=== PATIENT | female | born 2000 | race Caucasian/White ===

== ENCOUNTER 2022-04-09 15:18 | Emergency (ER) | payer BC ==
[2022-04-09] MEDS ORDERED: Haloperidol Lactate 5 MG/ML SDV IM ONE (18:36)
== END 2022-04-09 20:52 | disposition home or self-care (01) ==
LOC: JD.ED 15:18
DX: G43.909 Migraine, unspecified, not intractable, without status migrainosus (principal); R41.2 Retrograde amnesia; Z91.048 Other nonmedicinal substance allergy status; Z88.0 Allergy status to penicillin
CPT/HCPCS: 36415; 70450; 80053; 80306; 80307; 81001; 81025; 83735; 85025; 96372; 99284; J1630

== ENCOUNTER 2024-08-09 08:24 | Inpatient (IN) | payer BC ==
[2024-08-09] MEDS ORDERED: Calcium Carbonate 500 MG Tab.Chew PO PRN (08:27)
[2024-08-09] MEDS ORDERED: Nalbuphine 10 MG/1 ML Vial IVPUSH PRN (08:27)
[2024-08-09] MEDS ORDERED: Lidocaine 1% 50 ML MDV INJECT PRN (08:27)
[2024-08-09] MEDS ORDERED: Acetaminophen 325 MG Tab PO PRN ×2 (08:27→20:07)
[2024-08-09] MEDS ORDERED: Ondansetron 4 MG/2 ML SDV IVPUSH PRN (08:27)
[2024-08-09] MEDS ORDERED: Oxytocin/0.9 % Sodium Chloride 30 UNIT/500 ML BAG IV SCH ×3 (08:30→17:00)
[2024-08-09 09:00] LABS: BASOPHILS ABSOLUTE AUTO 0.1 K/mm3 (0.0-0.2); BASOPHILS PERCENT AUTO 0.3 % (0.0-1.0); EOSINOPHILS PERCENT AUTO 0.2 % (0.0-6.0); HEMATOCRIT 35.5 % (37.0-47.0); HEMOGLOBIN 11.6 gm/dl (12.0-16.0); IMMATURE GRAN ABSOLUTE AUTO 0.22 K/mm3 (0.00-0.05); IMMATURE GRAN PERCENT AUTO 1.1 % (0.0-0.4); LYMPHOCYTES ABSOLUTE AUTO 1.2 K/mm3 (1.0-4.8); LYMPHOCYTES PERCENT AUTO 6.4 % (24.0-44.0); MEAN CORPUSCULAR HEMOGLOBIN 27.9 pg (28.0-32.0); MEAN CORPUSCULAR HGB CONC 32.7 g/dl (32.0-36.0); MEAN CORPUSCULAR VOLUME 85.3 fl (83.0-99.0); MEAN PLATELET VOLUME 10.2 fl (9.4-12.3); MONOCYTES ABSOLUTE AUTO 1.8 K/mm3 (0.0-0.8); MONOCYTES PERCENT AUTO 9.1 % (0.0-8.0); NEUTROPHILS ABSOLUTE AUTO 16.2 K/mm3 (1.8-7.7); NEUTROPHILS PERCENT AUTO 82.9 % (41.0-71.0); PLATELET COUNT,PLT 389 K/mm3 (150-400); RED BLOOD CELL COUNT 4.16 M/mm3 (4.10-5.30)
[2024-08-09] MEDS: Lactated Ringers 1,000 ML IV SCH (09:00)
[2024-08-09] MEDS ORDERED: diphenhydrAMINE 50 MG/ML SDV IVPUSH PRN (09:31)
[2024-08-09 09:48] LABS: SLIDE REVIEW ABNORMAL SMEAR
[2024-08-09] MEDS: Bupivacaine/fentaNYL/NS 100 ML Bag EPIDUR PRN (09:49)
[2024-08-09] MEDS: ePHEDrine 50 MG/ML SDV IVPUSH PRN (10:09)
[2024-08-09] MEDS: Witch Hazel Medicated Pads 40/Jar TOP PRN (21:55)
[2024-08-09] MEDS: Benzocaine/Menthol 20%-0.5% Spray 78 GM Cannister TOP PRN (21:57)
[2024-08-09] MEDS: Ibuprofen 600 MG Tab PO PRN (22:10)
== END 2024-08-11 10:19 | disposition home or self-care (01) | DRG 560 ==
LOC: JD.OBCHECK 08:24 → JD.OB 08:25 → JD.OBCHECK 08:27 → OBSVTOIN 16:56 → JD.OB 16:57 → UNDODISIN 08-11 10:19
PROVIDERS: ADMIT Obstetrics & Gynecology; ATTEND Obstetrics & Gynecology
PROC: 10E0XZZ Delivery of Products of Conception, External Approach (ICD-10-PCS; principal; 2024-08-09)
PROC: 0W8NXZZ Division of Female Perineum, External Approach (ICD-10-PCS; principal; 2024-08-09)
PROC: 3E0R3BZ Introduction of Anesthetic Agent into Spinal Canal, Percutaneous Approach (ICD-10-PCS; principal; 2024-08-09)
PROC: 0KQM0ZZ Repair Perineum Muscle, Open Approach (ICD-10-PCS; principal; 2024-08-09)
DX: O42.92 Full-term premature rupture of membranes, unspecified as to length of time between rupture and onset of labor (principal); O99.344 Other mental disorders complicating childbirth; F41.9 Anxiety disorder, unspecified; O70.1 Second degree perineal laceration during delivery; Z88.0 Allergy status to penicillin; Z98.890 Other specified postprocedural states; Z79.899 Other long term (current) drug therapy; Z3A.38 38 weeks gestation of pregnancy; Z37.0 Single live birth; Z88.8 Allergy status to other drugs, medicaments and biological substances
CPT/HCPCS: 01967; 36415; 51702; 59025; 59409; 85025; 86592; 86850; 86900; 86901; A9270-GY; J3490; J7120